=== PATIENT | male | born 1980 | race Caucasian/White ===

== ENCOUNTER 2022-10-15 13:59 | Emergency (ER) | payer BC ==
[~2022-10-15] VITALS: Ht 190.5 cm; Wt 113.6 kg
[2022-10-15 15:20] VITALS: BP 148/91; PULSE 86; TEMP 99
== END 2022-10-15 15:20 | disposition home or self-care (01) ==
LOC: COL.ER 13:59
DX: S51.812A Laceration without foreign body of left forearm, initial encounter (principal); Z23 Encounter for immunization; W26.0XXA Contact with knife, initial encounter